=== PATIENT | male | born 1985 | race Caucasian/White ===

== ENCOUNTER 2025-01-23 10:01 | Emergency (ER) | payer OTHER, SELFPAY ==
[2025-01-23] VITALS (12 sets, daily range): BP systolic 118–148; BP diastolic 65–84; PULSE 89–108; RESP 14–28; TEMP 36.6; O2SAT 94–98
--- NOTE | 2025-01-23 10:09 | EKG_ITS ---
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
--- NOTE | 2025-01-23 10:12 | DI.CT.S_ITS ---
PROCEDURE: CT ANGIO CHEST PE PROTOCOL INDICATIONS: Chest pain/dyspnea TECHNIQUE: After the administration of intravenous contrast, 2 mm thick sections acquired from the pulmonary apices to the posterior costophrenic angles. 3-dimensional maximum intensity projection (MIP) coronal and sagittal reformats were then acquired through the thorax. For radiation dose reduction, the following was used: automated exposure control, adjustment of mA and/or kV according to patient size. COMPARISON: None. FINDINGS: Image quality: Diagnostic. Thyroid: Within normal limits. Cardiac: Heart size within normal limits. No pericardial effusion. RV: LV ratio within normal limits. No bowing of the interventricular septum. No reflux of contrast into the hepatic veins. Aorta: Thoracic aortic diameter within normal limits. Pulmonary Artery: Main pulmonary artery diameter within normal limits. No central filling defect in the pulmonary arteries to the segmental level. Lungs: No focal lung consolidation. Pleura: No pneumothorax or pleural effusion. Airways: The trachea and mainstem bronchi are patent. Lymph Nodes: No mediastinal, hilar, or axillary lymphadenopathy. Esophagus: Within normal limits. Bones: No acute osseous abnormality. Small Schmorl's nodes at the superior and inferior endplates of T12 (/73) Upper Abdomen: Splenomegaly up to 14.8 cm in the AP dimension (4/143). IMPRESSION: 1. No CT evidence of pulmonary embolism to the segmental level. 2. No specific splenomegaly. 3. No other acute CT abnormality of the chest. Dictated by: Can Barrera M.D. on 01/23/2025 at 10:36 Approved by: Can Barrera M.D. on 01/23/2025 at 10:39
--- NOTE | 2025-01-23 10:19 | ED.CHESTPAIN ---
HPI - Chest Pain General Chief Complaint: Arrhythmia/Palpitations Stated Complaint: CP/SOB/high HR Time Seen by Provider: 01/23/25 10:12 History of Present Illness HPI narrative: Patient brought in by ambulance from walk-in clinic. Patient complains of palpitations dizziness chest discomfort shortness of breath for the past 2 days. This is never occurred to him before. It is a child was worked up with high cholesterol but never placed on medication. No primary family history of coronary artery disease but mother does have history of arrhythmia. Patient denies any new stressors. No drugs/amphetamines. Patient given aspirin and nitro paste prior to arrival. Pain was 4/10 now is 2/10. Patient in no distress. No nausea or sweating. Does feel very tired and short of breath when walking is usual short distances. Related Data Home Medications Medication Instructions Recorded Confirmed No Known Home Medications 08/29/23 08/29/23 Allergies Allergy/AdvReac Type Severity Reaction Status Date / Time No Known Drug Allergies Allergy Unverified 08/29/23 08:13 Review of Systems Review of Systems Narrative: GENERAL: Negative chills, fatigue, malaise, fever, sweats. HEENT: Negative sinus pain, ear pain, sore throat RESPIRATORY: Positive dyspnea, negative cough CARDIOVASCULAR: Positive chest pain, palpitations GASTROINTESTINAL: Negative vomiting, nausea, abdominal pain : Negative dysuria, frequency, hematuria MUSCULOSKELETAL: Negative muscle or bony pain SKIN: Negative rash, skin lesions NEUROLOGIC: Negative weakness, numbness, positive dizziness ROS Unobtainable: All systems reviewed & are unremarkable except as noted in HPI and below Patient History Social History Smoking Status: Former smoker Exam Narrative Exam Narrative: GENERAL: in no distress, not toxic not dyspneic HEAD: Normocephalic. EYES: Pupils equal round ENT: Mucous membranes moist. NECK: Trachea midline. CARDIOVASCULAR: Regular rate and rhythm, is tachycardic RESPIRATORY: Clear to auscultation. Breath sounds equal bilaterally. No wheezes, rales, or rhonchi. GASTROINTESTINAL: Abdomen soft, non-tender EXTREMITIES: No gross deformities. BACK: No flank tenderness. NEURO: AOx4. Clear speech SKIN: Warm and dry PSYCH: Not anxious, is cooperative Initial Vital Signs Initial Vital Signs: Vital Signs Temperature 98 F 01/23/25 10:00 Pulse Rate 106 H 01/23/25 10:00 Respiratory Rate 17 01/23/25 10:00 Blood Pressure 143/80 H 01/23/25 10:00 Pulse Oximetry 96 01/23/25 10:00 Oxygen Delivery Method Room Air 01/23/25 10:00 Scores HEART Score Heart Score history: Slightly Suspicious Heart Score EKG: Normal Heart Score Age: < 45 years old Heart Score risk factors: No known risk factors Heart Score troponin: < or = to normal limit Heart Score Total: 0 Course Orders Ordered: Discontinued Medications Aspirin (Aspirin 81 Mg Chew Tab) 324 mg PO NOW ONE Stop: 01/23/25 10:06 Last Admin: 01/23/25 10:14 Dose: Not Given Documented By: KARISHMA Sodium Chloride (Normal Saline 0.9%) 1,000 mls @ 1,000 mls/hr IV BOLUS ONE Stop: 01/23/25 11:11 Last Infusion: 01/23/25 11:43 Dose: Infused Documented By: Admin: 01/23/25 10:24 Dose: 1,000 mls/hr Documented By: KARISHMA Vital Signs Vital signs: Vital Signs - 8 hr 01/23/25 10:00 01/23/25 10:05 01/23/25 10:05 Temperature 98 F Pulse Rate 106 H 107 H Respiratory Rate 17 Blood Pressure 143/80 H 148/81 H Pulse Oximetry 96 95 Oxygen Delivery Method Room Air 01/23/25 10:06 01/23/25 10:06 01/23/25 10:21 Temperature Pulse Rate 108 H Respiratory Rate 15 Blood Pressure 143/80 H 137/84 Pulse Oximetry 96 Oxygen Delivery Method 01/23/25 10:21 01/23/25 10:30 01/23/25 10:30 Temperature Pulse Rate 105 H 103 H Respiratory Rate 28 H Blood Pressure 125/74 Pulse Oximetry 97 94 Oxygen Delivery Method Room Air 01/23/25 11:00 01/23/25 11:00 01/23/25 11:29 Temperature Pulse Rate 101 H 89 Respiratory Rate 17 Blood Pressure 139/79 Pulse Oximetry 96 96 Oxygen Delivery Method Room Air 01/23/25 11:30 01/23/25 11:30 01/23/25 12:00 Temperature Pulse Rate 89 102 H Respiratory Rate 14 23 Blood Pressure 124/65 Pulse Oximetry 96 94 Oxygen Delivery Method 01/23/25 12:00 01/23/25 12:30 01/23/25 12:30 Temperature Pulse Rate 91 H Respiratory Rate 22 Blood Pressure 118/82 125/66 Pulse Oximetry 97 Oxygen Delivery Method 01/23/25 13:00 01/23/25 13:00 Temperature Pulse Rate 90 Respiratory Rate 25 H Blood Pressure 125/80 Pulse Oximetry 96 Oxygen Delivery Method MDM - Chest Pain Lab Data 01/23/25 10:13 01/23/25 10:13 Labs: Lab Results 01/23/25 01/23/25 01/23/25 Range/Units 10:13 10:36 12:00 WBC 4.3 L (4.5-11.0) X10^3/uL RBC 4.94 (4.5-5.9) X10^6/uL Hgb 15.6 (13.5-17.5) g/dL Hct 44.5 (41-53) % MCV 90.1 (80-100) fL MCH 31.5 (26-34) PG MCHC 35.0 (30-36) % RDW 12.4 (11.6-14.8) % Plt Count 201 (150-400) X10^3/uL Neut % (Auto) 56.6 (50-75) % Lymph % (Auto) 28.6 (25-40) % [place] % (Auto) 12.4 (3-14) % Eos % (Auto) 1.7 L (2-4) % Baso % (Auto) 0.7 (0-2) % Neut # (Auto) 2400 (6906-4788) /uL Lymph # (Auto) 1200 (0856-5374) /uL [place] # (Auto) 500 (0-900) /uL Eos # (Auto) 100 (0-450) /uL Baso # (Auto) 0 (0-100) /uL PT 12.7 H (9.4-12.5) SECONDS INR 1.1 (0.9-1.3) APTT 36 (25.1-36.5) SECONDS Sodium 137 (137-145) mmol/L Potassium 4.5 (3.4-5.1) mmol/L Chloride 106 (98-107) mmol/L Carbon Dioxide 23 (22-32) mmol/L BUN 15 (9-20) mg/dL Creatinine 0.71 (0.66-1.25) mg/dL Estimated GFR > 60 (>60) mL/min BUN/Creatinine Ratio 21.1 (6-22) Glucose 101 H (70-99) mg/dL Calcium 9.5 (8.4-10.2) mg/dL Magnesium 1.8 (1.6-2.3) mg/dL Total Bilirubin 1.0 (0.2-1.3) mg/dL AST 33 (17-59) IU/L ALT 29 (<50) IU/L Alkaline Phosphatase 33 L (38-126) U/L Total Creatine Kinase 46 L 40 L (55-170) U/L Troponin I < 0.012 < 0.012 (0.01-0.034) ng/mL NT-Pro-B Natriuret Pep < 20 (<125) pg/mL Total Protein 7.2 (6.3-8.2) g/dL Albumin 4.5 (3.5-5.0) g/dL Globulin 2.7 (1.7-4.1) g/dL Albumin/Globulin Ratio 1.7 (1.0-2.8) Lipase 116 (23-300) U/L U Opiates 300ng/mL cut Negative (Negative) Ur Oxycodone Screen Negative (Negative) Urine Methadone Screen Negative (Negative) Ur Barbiturates Screen Negative (Negative) U Tricyclic Antidepress Negative (Negative) Ur Phencyclidine Scrn Negative (Negative) Ur Amphetamines Screen Negative (Negative) U Methamphetamines Scrn Negative (Negative) Ur MDMA Scrn (Ecstasy) Negative (Negative) U Benzodiazepines Scrn Negative (Negative) Urine Cocaine Screen Negative (Negative) U Marijuana (THC) Screen Negative (Negative) Urine pH Normal (Normal) Urine Specific [place] Normal (Normal) Ur Creatinine Normal (Normal) Imaging Data CT scan - chest: Radiologist's Impression: [address] [address] [address] Scan Report Signed Patient: Darshan Palacio MR#: [id number] : 1985 Acct:[id number] Age/Sex: 39 / M Date of Service: 01/23/25 Loc: ED Accession Number: [id number] Procedure: CT angio chest PE protocol Ordering Provider: Lee Malone MD PROCEDURE: CT ANGIO CHEST PE PROTOCOL INDICATIONS: Chest pain/dyspnea TECHNIQUE: After the administration of intravenous contrast, 2 mm thick sections acquired from the pulmonary apices to the posterior costophrenic angles. 3-dimensional maximum intensity projection (MIP) coronal and sagittal reformats were then acquired through the thorax. For radiation dose reduction, the following was used: automated exposure control, adjustment of mA and/or kV according to patient size. COMPARISON: None. FINDINGS: Image quality: Diagnostic. Thyroid: Within normal limits. Cardiac: Heart size within normal limits. No pericardial effusion. RV: LV ratio within normal limits. No bowing of the interventricular septum. No reflux of contrast into the hepatic veins. Aorta: Thoracic aortic diameter within normal limits. Pulmonary Artery: Main pulmonary artery diameter within normal limits. No central filling defect in the pulmonary arteries to the segmental level. Lungs: No focal lung consolidation. Pleura: No pneumothorax or pleural effusion. Airways: The trachea and mainstem bronchi are patent. Lymph Nodes: No mediastinal, hilar, or axillary lymphadenopathy. Esophagus: Within normal limits. Bones: No acute osseous abnormality. Small Schmorl's nodes at the superior and inferior endplates of T12 (7/73) Upper Abdomen: Splenomegaly up to 14.8 cm in the AP dimension (4/143). IMPRESSION: 1. No CT evidence of pulmonary embolism to the segmental level. 2. No specific splenomegaly. 3. No other acute CT abnormality of the chest. Dictated by: Can Barrera M.D. on 01/23/2025 at 10:36 Approved by: Can Barrera M.D. on 01/23/2025 at 10:39 [facility] Narrative Medical decision making narrative: Patient brought in by ambulance from walk-in clinic. Patient complains of palpitations dizziness chest discomfort shortness of breath for the past 2 days. This is never occurred to him before. It is a child was worked up with high cholesterol but never placed on medication. No primary family history of coronary artery disease but mother does have history of arrhythmia. Patient denies any new stressors. No drugs/amphetamines. Patient given aspirin and nitro paste prior to arrival. Pain was 4/10 now is 2/10. Patient in no distress. No nausea or sweating. Does feel very tired and short of breath when walking is usual short distances. After history and exam, CBC CMP troponin CT chest normal saline EKG [facility] Medical records reviewed: No recent visit for this complaint Differential considered: Includes but not limited to STEMI non-STEMI pulmonary embolism pneumothorax Lab Test results independently reviewed as above. Pertinent findings: WBC 4.2 hemoglobin 15.6 INR 1.1 sodium 137 potassium 4.5 AST 33 ALT 29 troponin less than 0.012 drug screen negative Independently reviewed EKG sinus tachycardia rate 105 otherwise normal EKG Imaging studies independently reviewed: CT chest no acute finding Consultations: 1:15 p.m.. Spoke with Cardiology on-call, spoke with Dr. Holbrook, patient has low heart risk factors patient can be discharged home and follow up with primary care for outpatient echocardiogram and stress test. No new medications indicated at this time. Re-evaluations: 1:25 p.m.. Reviewed with patient and results. And my discussion with cardiology services. Patient has low heart risk factors. EMS rhythm strips do show he was having numerous PVCs and this could be the source of his symptoms. Patient fast exam is negative. No neuro deficits. No primary family history of coronary artery disease. Patient states he is scheduling to see Dr. Damon as primary care. He will call the office to make appointment. Blood pressure at this time 1:20 a.m. 125/80 pulse 90 in no distress no symptoms at this time. He will keep a journal of his blood pressure daily to present to Dr. Damon. Return precautions reviewed and they desire discharge home. No new medications indicated at this time. Discussion: Appropriate for discharge home. Patient asymptomatic during course of stay. Cardiology service was contacted. Exam and laboratory studies and imaging studies are reassuring. They desire discharge home. Diagnosis: Chest pain/sinus tachycardia Discharge Plan Departure Patient Disposition: Home Clinical Impression: Palpitations, Sinus tachycardia Chest pain Qualifiers: Chest pain type: unspecified Qualified Code(s): R07.9 - Chest pain, unspecified Instructions: Premature Ventricular Beats, DI for Chest Pain Activity Restrictions/Additional Instructions: Please see Dr. Damon as planned. Please call tomorrow or today to make appointment. Cardiology services was contacted today. Your laboratory studies imaging studies are reassuring. No new medications are indicated at this time. However please do keep a journal of your blood pressure daily to present to Dr. Damon, your new family doctor. Return if worse if any questions or concerns. Prescriptions: No Action No Known Home Medications Referrals: Kareem Galeana [Primary Care Provider] - Stand Alone Forms: Patient Portal/API/Survey
[2025-01-23 10:22] LABS: Add Manual Diff / Slide Review NO; Basophils Absolute Auto 0 /uL (0-100); Basophils Percent Auto 0.7 % (0-2); Eosinophils Absolute Auto 100 /uL (0-450); Eosinophils Percent Auto 1.7 % (2-4); Hematocrit 44.5 % (41-53); Hemoglobin 15.6 g/dL (13.5-17.5); Lymphocytes Absolute Auto 1200 /uL (1100-4500); Lymphocytes Percent Auto 28.6 % (25-40); Mean Corpuscular Hemoglobin 31.5 PG (26-34); Mean Corpuscular Volume 90.1 fL (80-100); Monocytes Absolute Auto 500 /uL (0-900); Monocytes Percent Auto 12.4 % (3-14); Neutrophils Absolute Auto 2400 /uL (1500-7000); Neutrophils Percent Auto 56.6 % (50-75); Platelet Count 201 X10^3/uL (150-400); Red Blood Cell Count 4.94 X10^6/uL (4.5-5.9); Red Cell Distribution Width 12.4 % (11.6-14.8); White Blood Cell Count 4.3 X10^3/uL (4.5-11.0)
[2025-01-23] MEDS: SODIUM CHLORIDE 0.9% 1,000 ML 1000 ML IV (10:24)
[2025-01-23 10:30] LABS: INR 1.1 (0.9-1.3); Prothrombin Time 12.7 SECONDS (9.4-12.5)
[2025-01-23 10:33] LABS: PTT Partial Thromboplastin Tim 36 SECONDS (25.1-36.5)
[2025-01-23 10:34] LABS: Alanine Aminotransferase 29 IU/L (<50); Albumin 4.5 g/dL (3.5-5.0); Albumin Globulin Ratio 1.7 (1.0-2.8); Alkaline Phosphatase 33 U/L (38-126); Aspartate Aminotransferase 33 IU/L (17-59); BUN Creatinine Ratio 21.1 (6-22); Blood Urea Nitrogen 15 mg/dL (9-20); Calcium 9.5 mg/dL (8.4-10.2); Carbon Dioxide 23 mmol/L (22-32); Chloride 106 mmol/L (98-107); Creatine Kinase 46 U/L (55-170); Estimated Glomerular Filt Rate > 60 mL/min (>60); Globulin 2.7 g/dL (1.7-4.1); Glucose 101 mg/dL (70-99); Lipase 116 U/L (23-300); Magnesium 1.8 mg/dL (1.6-2.3); Potassium 4.5 mmol/L (3.4-5.1); Sodium 137 mmol/L (137-145); Total Protein 7.2 g/dL (6.3-8.2)
[2025-01-23 10:38] LABS: HEMOLYSIS 52 (0-50)
--- NOTE | 2025-01-23 10:41 | PC.NURSE ---
Pt reports he has not been around anyone sick. Pt states he feel the palpitations at rest. Frequent PVCs noted. Pt states he has been outside building a chicken coup? States he has been around chickens but states they are his own. Pt denies cardiac hx. States his mother has afib. Pt reports nitro paste did not help his CP/discomfort
[2025-01-23 10:46] LABS: NT-proBNP (BNP-Adult 18+) < 20 pg/mL (<125); Troponin I < 0.012 ng/mL (0.01-0.034)
[2025-01-23 11:15] LABS: Ur Creatinine Normal (Normal); Ur Specific Gravity Normal (Normal); Urine Amphetamines Negative (Negative); Urine Barbiturates Negative (Negative); Urine Benzodiazepines Negative (Negative); Urine Cocaine Negative (Negative); Urine MDMA Negative (Negative); Urine Methadone Negative (Negative); Urine Opiates Negative (Negative); Urine Oxycodone Negative (Negative); Urine Phencyclidine Negative (Negative); Urine THC Negative (Negative); Urine Tricyclic Antidepressant Negative (Negative); Urine pH Normal (Normal)
[2025-01-23 12:16] LABS: Creatine Kinase 40 U/L (55-170)
[2025-01-23 12:54] LABS: Troponin I < 0.012 ng/mL (0.01-0.034)
== END 2025-01-23 13:39 | disposition home or self-care (01) ==
PROVIDERS: Emergency Provider Emergency Medicine
DX: R00.2 Palpitations (principal); R00.0 Tachycardia, unspecified; R07.9 Chest pain, unspecified; R42 Dizziness and giddiness
CPT/HCPCS: 71275; 80053; 80305; 82550; 83690; 83735; 83880; 84484; 85025; 85610; 85730; 93005; 93010; 96360; 99284; Q9967